=== PATIENT | male | born 1995 | race Caucasian/White ===

== ENCOUNTER 2016-11-27 20:04 | Emergency (ER) | payer BC ==
[2016-11-27 20:30] VITALS: BP 123/76; PULSE 80; RESP 18; TEMP 70
--- NOTE | 2016-11-27 20:38 | ED ---
Skin/Abscess/FB HPI - General Chief complaint: Skin/Abscess/Foreign Body Stated complaint: Rash/Arm Time Seen by Provider: 11/27/16 20:31 Source: patient, RN notes reviewed Mode of arrival: ambulatory Limitations: no limitations - History of Present Illness Initial comments: 21-year-old male presents for insect bites to right forearm. Patient states that he woke up with them they have been itching. Patient states he went to work and they sent him home because they wanted to make sure the insect bites were not contagious. Patient states a mildly itchy. Patient states there is been no trauma no fever chills no cough cold runny nose. Patient states he look typical of when he gets insect bites. - Related Data Previous Rx's Medication Instructions Recorded diphenhydrAMINE & Zinc Cream 1 applic TOPICAL BID #1 tube 11/27/16 [Benadryl Cream] Allergies Allergy/AdvReac Type Severity Reaction Status Date / Time Penicillins Allergy Unknown Verified 11/27/16 20:30 Childhood Review of Systems ROS Statement: Those systems with pertinent positive or pertinent negative responses have been documented in the HPI. ROS Other: All systems not noted in ROS Statement are negative. Past Medical History Past Medical History: Asthma History of Any Multi-Drug Resistant Organisms: None Reported Past Surgical History: Adenoidectomy, Ear Surgery, Tonsillectomy Additional Past Surgical History / Comment(s): colon biopsy Past Psychological History: No Psychological Hx Reported Smoking Status: Current every day smoker Past Alcohol Use History: Occasional Past Drug Use History: Marijuana General Exam - General Exam Comments Initial Comments: General: The patient is awake and alert, in no distress, and does not appear acutely ill. Neck: The neck is supple, there is no tenderness. Cardiovascular: There is a regular rate and rhythm. No murmur, rub or gallop is appreciated. Respiratory: Lungs are clear to auscultation, respirations are non-labored, breath sounds are equal. No wheezes, stridor, rales, or rhonchi. Musculoskeletal: Sensation intact with 2+ pulses. Right upper extremity. Fund motion of right elbow and right shoulder and right arm. Patient appears to have multiple insect bites to the right forearm. There is no fluctuance to the area. No drainage no purulent discharge. Neurological: CN II-XII intact, There are no obvious motor or sensory deficits. Coordination appears grossly intact. Speech is normal. Skin: Skin is warm and dry and no rashes or lesions are noted. Psychiatric: Normal mood and affect. Limitations: no limitations Course Vital Signs 11/27/16 20:27 Temperature 70 F L Pulse Rate 80 Respiratory 18 Rate Blood Pressure 123/76 O2 Sat by Pulse 99 Oximetry Medical Decision Making - Medical Decision Making 18-year-old male presents for insect bites to the right forearm. This time patient was given a prescription for Benadryl cream to apply to the area. We discussed return parameters. Follow-up and all patient's questions. He stated he understood he is very plan. He'll be discharged. Disposition Clinical Impression: Insect bite of right arm Disposition: HOME SELF-CARE Condition: Stable Instructions: Insect Bite or Sting (ED) Additional Instructions: Please use medication as discussed. Please follow up with family doctor if symptoms have not improved over the next two days. Please return to the emergency room if your symptoms increase or worsen or for any other concerns. Prescriptions: diphenhydrAMINE & Zinc Cream [Benadryl Cream] 1 applic TOPICAL BID #1 tube Referrals: None,Stated [Primary Care Provider] - 1-2 days Amelia Dsouza MD [STAFF PHYSICIAN] - 1-2 days Time of Disposition: 20:38
== END 2016-11-27 20:52 | disposition home or self-care (01) ==
LOC: EC 20:04
DX: S50.861A Insect bite (nonvenomous) of right forearm, initial encounter (principal); F17.200 Nicotine dependence, unspecified, uncomplicated; Z88.0 Allergy status to penicillin; W57.XXXA Bitten or stung by nonvenomous insect and other nonvenomous arthropods, initial encounter
CPT/HCPCS: 99282

== ENCOUNTER 2017-03-10 21:52 | Emergency (ER) | payer BC, OTHER ==
[2017-03-10 22:24] VITALS: RESP 16
[2017-03-10] MEDS ORDERED: SODIUM CHLORIDE 0.9% 1,000 ML IV STA (23:11)
[2017-03-10 23:46] LABS: ALT 27 U/L (21-72); AST 19 U/L (17-59); Alkaline Phosphatase 57 U/L (38-126); Anion Gap 6 mmol/L; Blood Urea Nitrogen 8 mg/dL (9-20); Calcium 8.4 mg/dL (8.4-10.2); Carbon Dioxide 24 mmol/L (22-30); Chloride 108 mmol/L (98-107); Glucose 91 mg/dL (74-99); Non-African American GFR(MDRD) >60 (>60 ml/min/1.73 sqM); Potassium 3.5 mmol/L (3.5-5.1); Sodium 138 mmol/L (137-145); Total Bilirubin 0.2 mg/dL (0.2-1.3); Total Protein 5.1 g/dL (6.3-8.2)
[2017-03-10 23:47] LABS: Basophils # (A) 0.1 k/uL (0-0.2); Basophils % (A) 1 %; CH 29.4; CHCM 32.5; Eosinophils # (A) 0.3 k/uL (0-0.7); Eosinophils % (A) 3 %; HCT 44.4 % (39.0-53.0); HDW 2.22; HGB 14.6 gm/dL (13.0-17.5); Luc # (Auto) 0.09; Luc % (Auto) 1; Lymphocytes # (A) 1.7 k/uL (1.0-4.8); Lymphocytes % (A) 21 %; MCH 29.9 pg (25.0-35.0); MCHC 32.9 g/dL (31.0-37.0); MCV 90.8 fL (80.0-100.0); Mean Platelet Volume 7.4; Monocytes # (A) 0.4 k/uL (0-1.0); Monocytes % (A) 5 %; Neutrophils # (A) 5.8 k/uL (1.3-7.7); Neutrophils % (A) 69 %; RBC 4.89 m/uL (4.30-5.90); RDW 12.2 % (11.5-15.5); WBC 8.4 k/uL (3.8-10.6); WBC (Perox) 8.03
[2017-03-10 23:48] LABS: Appearance,Urine Clear (Clear); Bilirubin,Urine Negative (Negative); Glucose,Urine (UA) Negative (Negative); Ketones,Urine Negative (Negative); Leukocyte Esterase,Urine Negative (Negative); Nitrite,Urine Negative (Negative); PH, Urine 6.5 (5.0-8.0); Protein,Urine Negative (Negative); UA Billing (MACRO vs. MICRO) CHEM; Urobilinogen,Urine <2.0 mg/dL (<2.0)
[2017-03-11 00:03] LABS: Glucose,Whole Blood 119 mg/dL (75-99)
--- NOTE | 2017-03-11 00:21 | ED ---
Dizziness HPI - General Chief Complaint: Dizziness Stated Complaint: feeling faint; fast heart beat Time Seen by Provider: 03/10/17 22:35 Source: patient Mode of arrival: ambulatory Limitations: no limitations - History of Present Illness Initial Comments: 21-year-old male patient presents to emergency department today for feelings of dizziness. Patient states that the symptoms started around 10:30 this evening. Patient states that at the time he was playing video games, states that he became dizzy and then started to have some nausea associated with this. He states that the dizziness was mostly, when he would sit up or stand up. He states that it felt like the room was spinning. He states that he did smoke marijuana this evening however states he has done this in the past without any similar symptoms. He denies any headache, blurred vision, double vision, weakness, numbness, tingling, abdominal pain, current nausea, vomiting, diarrhea , constipation, blurred vision, or double vision. Denies any difficulty with urination. He denies any cough, congestion, nasal drainage, ear pain, or ear fullness. Denies any history of similar symptoms. She states that at this time symptoms have improved. He denies any use of alcohol. Denies any use of other street drugs. States he does smoke cigarettes. - Related Data Home Medications Medication Instructions Recorded Confirmed No Known Home Medications [No 03/10/17 03/10/17 Known Home Medications] Allergies Allergy/AdvReac Type Severity Reaction Status Date / Time Penicillins Allergy Unknown Verified 03/10/17 22:24 Childhood Review of Systems ROS Statement: Those systems with pertinent positive or pertinent negative responses have been documented in the HPI. ROS Other: All systems not noted in ROS Statement are negative. Past Medical History Past Medical History: Asthma History of Any Multi-Drug Resistant Organisms: None Reported Past Surgical History: Adenoidectomy, Ear Surgery, Tonsillectomy Additional Past Surgical History / Comment(s): colon biopsy Past Psychological History: No Psychological Hx Reported Smoking Status: Current every day smoker Past Alcohol Use History: Occasional Past Drug Use History: Marijuana General Exam Limitations: no limitations General appearance: alert, in no apparent distress, other (This is a well- developed, well-nourished adult male patient in no acute distress. Vital signs upon presentation are temperature 98.6F, pulse 70, respirations 16, blood pressure 121/70, pulse ox 98% on room air.) Eye exam: Present: normal appearance, PERRL, EOMI, conjunctival injection (Mild conjunctival erythema, bilaterally.), other (No drainage). Absent: scleral icterus, nystagmus, periorbital swelling ENT exam: Present: normal exam, normal oropharynx, mucous membranes moist, TM's normal bilaterally, normal external ear exam Neck exam: Present: normal inspection. Absent: tenderness, meningismus, lymphadenopathy Respiratory exam: Present: normal lung sounds bilaterally. Absent: respiratory distress, wheezes, rales, rhonchi, stridor Cardiovascular Exam: Present: regular rate, normal rhythm, normal heart sounds. Absent: systolic murmur, diastolic murmur, rubs, gallop, clicks GI/Abdominal exam: Present: soft, normal bowel sounds. Absent: distended, tenderness, guarding, rebound, rigid Neurological exam: Present: alert, oriented X3, CN II-XII intact, other ( Strength in all extremities is 5/5. Facial features are symmetric at rest and with movement. Speech is fluid and clear.) Psychiatric exam: Present: normal affect, normal mood Skin exam: Present: warm, dry, intact, normal color. Absent: rash Course Vital Signs 03/10/17 03/11/17 22:23 00:36 Temperature 98.6 F 97.9 F Pulse Rate 70 67 Respiratory 16 16 Rate Blood Pressure 121/70 120/78 O2 Sat by Pulse 98 98 Oximetry EKG Findings - EKG Comments: EKG Findings:: EKG obtained at 2234 shows normal sinus rhythm with a ventricular rate of 79, [place] interval 136, Q [facility] 90, QT 366, QTC 419. Medical Decision Making - Medical Decision Making 21-year-old male patient presented for evaluation of dizziness that started around 10:30 this evening. Physical examination was unremarkable. Labs reviewed and were unremarkable. Urine drug screen was positive for marijuana which patient did admit to. Was negative for any other substances. EKG was within normal limits. Patient's vital signs remained stable throughout stay. Patient was reevaluated, states that symptoms have improved. Did discuss with patient use of marijuana did discuss this as a possible cause of his symptoms. He is instructed however to follow-up with his primary care physician for recheck in 1-2 days. He is instructed to return here immediately for any new, worsening, or concerning symptoms. He verbalized understanding and agreed with this plan. - Lab Data Result diagrams: 03/10/17 23:04 03/10/17 23:04 Lab Results 03/10/17 03/10/17 03/10/17 Range/Units 23:04 23:04 23:04 WBC 8.4 (3.8-10.6) k/uL RBC 4.89 (4.30-5.90) m/uL Hgb 14.6 (13.0-17.5) gm/dL Hct 44.4 (39.0-53.0) % MCV 90.8 (80.0-100.0) fL MCH 29.9 (25.0-35.0) pg MCHC 32.9 (31.0-37.0) g/dL RDW 12.2 (11.5-15.5) % Plt Count 163 (150-450) k/uL Neutrophils % 69 % Lymphocytes % 21 % Monocytes % 5 % Eosinophils % 3 % Basophils % 1 % Neutrophils # 5.8 (1.3-7.7) k/uL Lymphocytes # 1.7 (1.0-4.8) k/uL Monocytes # 0.4 (0-1.0) k/uL Eosinophils # 0.3 (0-0.7) k/uL Basophils # 0.1 (0-0.2) k/uL Sodium 138 (137-145) mmol/L Potassium 3.5 (3.5-5.1) mmol/L Chloride 108 H (98-107) mmol/L Carbon Dioxide 24 (22-30) mmol/L Anion Gap 6 mmol/L BUN 8 L (9-20) mg/dL Creatinine 0.70 (0.66-1.25) mg/dL Est GFR (MDRD) Af Amer >60 (>60 ml/min/1.73 sqM) Est GFR (MDRD) Non-Af >60 (>60 ml/min/1.73 sqM) Glucose 91 (74-99) mg/dL POC Glucose (mg/dL) (75-99) mg/dL POC Glu Geophysicist ID Calcium 8.4 (8.4-10.2) mg/dL Total Bilirubin 0.2 (0.2-1.3) mg/dL AST 19 (17-59) U/L ALT 27 (21-72) U/L Alkaline Phosphatase 57 (38-126) U/L Total Protein 5.1 L (6.3-8.2) g/dL Albumin 3.0 L (3.5-5.0) g/dL Urine Color Yellow Urine Appearance Clear (Clear) Urine pH 6.5 (5.0-8.0) Ur Specific [place] 1.010 (1.001-1.035) Urine Protein Negative (Negative) Urine Glucose (UA) Negative (Negative) Urine Ketones Negative (Negative) Urine Blood Negative (Negative) Urine Nitrite Negative (Negative) Urine Bilirubin Negative (Negative) Urine Urobilinogen <2.0 (<2.0) mg/dL Ur Leukocyte Esterase Negative (Negative) Urine Opiates Screen Not Detected (NotDetected) Ur Oxycodone Screen Not Detected (NotDetected) Urine Methadone Screen Not Detected (NotDetected) Ur Propoxyphene Screen Not Detected (NotDetected) Ur Barbiturates Screen Not Detected (NotDetected) U Tricyclic Antidepress Not Detected (NotDetected) Ur Phencyclidine Scrn Not Detected (NotDetected) Ur Amphetamines Screen Not Detected (NotDetected) U Methamphetamines Scrn Not Detected (NotDetected) U Benzodiazepines Scrn Not Detected (NotDetected) Urine Cocaine Screen Not Detected (NotDetected) U Marijuana (THC) Screen Detected H (NotDetected) 03/10/17 Range/Units 23:12 WBC (3.8-10.6) k/uL RBC (4.30-5.90) m/uL Hgb (13.0-17.5) gm/dL Hct (39.0-53.0) % MCV (80.0-100.0) fL MCH (25.0-35.0) pg MCHC (31.0-37.0) g/dL RDW (11.5-15.5) % Plt Count (150-450) k/uL Neutrophils % % Lymphocytes % % Monocytes % % Eosinophils % % Basophils % % Neutrophils # (1.3-7.7) k/uL Lymphocytes # (1.0-4.8) k/uL Monocytes # (0-1.0) k/uL Eosinophils # (0-0.7) k/uL Basophils # (0-0.2) k/uL Sodium (137-145) mmol/L Potassium (3.5-5.1) mmol/L Chloride (98-107) mmol/L Carbon Dioxide (22-30) mmol/L Anion Gap mmol/L BUN (9-20) mg/dL Creatinine (0.66-1.25) mg/dL Est GFR (MDRD) Af Amer (>60 ml/min/1.73 sqM) Est GFR (MDRD) Non-Af (>60 ml/min/1.73 sqM) Glucose (74-99) mg/dL POC Glucose (mg/dL) 119 H (75-99) mg/dL POC Glu Geophysicist ID Vaibhav Muñoz Calcium (8.4-10.2) mg/dL Total Bilirubin (0.2-1.3) mg/dL AST (17-59) U/L ALT (21-72) U/L Alkaline Phosphatase (38-126) U/L Total Protein (6.3-8.2) g/dL Albumin (3.5-5.0) g/dL Urine Color Urine Appearance (Clear) Urine pH (5.0-8.0) Ur Specific [place] (1.001-1.035) Urine Protein (Negative) Urine Glucose (UA) (Negative) Urine Ketones (Negative) Urine Blood (Negative) Urine Nitrite (Negative) Urine Bilirubin (Negative) Urine Urobilinogen (<2.0) mg/dL Ur Leukocyte Esterase (Negative) Urine Opiates Screen (NotDetected) Ur Oxycodone Screen (NotDetected) Urine Methadone Screen (NotDetected) Ur Propoxyphene Screen (NotDetected) Ur Barbiturates Screen (NotDetected) U Tricyclic Antidepress (NotDetected) Ur Phencyclidine Scrn (NotDetected) Ur Amphetamines Screen (NotDetected) U Methamphetamines Scrn (NotDetected) U Benzodiazepines Scrn (NotDetected) Urine Cocaine Screen (NotDetected) U Marijuana (THC) Screen (NotDetected) Disposition Clinical Impression: Dizziness Disposition: HOME SELF-CARE Condition: Good Instructions: Dizziness (ED) Additional Instructions: Increase fluids. Follow-up with her primary care physician for recheck in 1-2 days. Return here immediately for any new, worsening, or concerning symptoms. Referrals: None,Stated [Primary Care Provider] - 1-2 days Time of Disposition: 00:21
[2017-03-11 00:39] VITALS: BP 120/78; PULSE 67; TEMP 97.9
== END 2017-03-11 00:39 | disposition home or self-care (01) ==
LOC: EC 21:52
DX: R42 Dizziness and giddiness (principal); F17.200 Nicotine dependence, unspecified, uncomplicated; Z88.0 Allergy status to penicillin
CPT/HCPCS: 36415; 80053; 80306; 81003; 85025; 93005; 96360; 99284

== ENCOUNTER 2019-04-03 19:43 | Emergency (ER) | payer OTHER ==
[2019-04-03 19:47] VITALS: RESP 18
--- NOTE | 2019-04-03 20:27 | XR ---
EXAMINATION TYPE: XR forearm LT DATE OF EXAM: 04/03/2019 COMPARISON: NONE HISTORY: Wrist pain. Fall. TECHNIQUE: 2 view FINDINGS: There is nondisplaced transverse fracture of the distal radial metaphysis. This is 1 cm fro m the epiphyseal plate. Carpal bones are intact. Elbow joint appears intact. IMPRESSION: Acute nondisplaced transverse fracture distal radius.
--- NOTE | 2019-04-03 20:34 | XR ---
EXAMINATION TYPE: XR wrist complete LT DATE OF EXAM: 04/03/2019 COMPARISON: NONE HISTORY: Wrist pain TECHNIQUE: 4 views FINDINGS: There is acute comminuted transverse fracture of the distal radial metaphysis. Fracture diane e extends to the wrist joint. There is possible hairline fracture of the ulnar styloid process. The c arpal bones are intact. IMPRESSION: Acute comminuted fracture distal radius. Possible ulnar styloid process fracture.
[2019-04-03] MEDS ORDERED: KETOROLAC 60 MG/2 ML VIAL IM STA (21:09)
--- NOTE | 2019-04-03 21:31 | ED ---
General Adult HPI - General Chief complaint: Extremity Injury, Upper Stated complaint: Arm injury Source: patient, RN notes reviewed, old records reviewed Mode of arrival: ambulatory Limitations: no limitations - History of Present Illness Initial comments: 23-year-old male patient presents to the chief complaint of left wrist pain distal radius. Patient port that he was walking, slipped, fell down towards his buttock region had a fall on outstretched arm. Denies any trauma to head or neck. Denies any other complaints. Systemic: Pt denies fatigue, fever/chills, rash. Pt denies weakness, night sweats, weight loss. Neuro: Pt denies headache, visual disturbances, syncope or pre-syncope. HEENT: Pt denies ocular discharge or irritation, otalgia, rhinorrhea, pharyngitis or notable lymphadenopathy. Cardiopulmonary: Pt denies chest pain, SOB, heart palpitations, dyspnea on exertion. Abdominal/GI: Pt denies abdominal pain, n/v/d. : Pt denies dysuria, burning w/ urination, frequency/urgency. Denies new onset urinary or bowel incontinence. MSK: Pt denies myalgia, loss of strength or function in extremities. Neuro: Pt denies new onset weakness, paresthesias. - Related Data Home Medications Medication Instructions Recorded Confirmed No Known Home Medications 03/10/17 03/10/17 Allergies Allergy/AdvReac Type Severity Reaction Status Date / Time Penicillins Allergy Unknown Verified 04/03/19 19:47 Childhood Review of Systems ROS Statement: Those systems with pertinent positive or pertinent negative responses have been documented in the HPI. ROS Other: All systems not noted in ROS Statement are negative. Past Medical History Past Medical History: Asthma History of Any Multi-Drug Resistant Organisms: None Reported Past Surgical History: Adenoidectomy, Ear Surgery, Tonsillectomy Additional Past Surgical History / Comment(s): colon biopsy, Past Psychological History: No Psychological Hx Reported Smoking Status: Former smoker Past Alcohol Use History: Occasional Past Drug Use History: Marijuana General Exam - General Exam Comments Initial Comments: Constitutional: NAD, AOX3, Pt has pleasant affect. HEENT: NC/AT, trachea midline, neck supple, no lymphadenopathy. Posterior pharynx non erythematous, without exudates. External ears appear normal, without discharge. Mucous membranes moist. Eyes PERRLA, EOM intact. There is no scleral icterus. No pallor noted. Cardiopulmonary: RRR, no murmurs, rubs or gallops, no JVD noted. Lungs CTAB in anterior and posterior romeo. No peripheral edema. Abdominal exam: Abdomen soft and non-distended. Abdomen non-tender to palpation in all 4 quadrants. Bowel sounds active in LLQ. No hepatosplenomegaly. No ecchymosis Neuro: CN II-XII grossly intact. No nuchal rigidity. No raccon eyes, no preston sign, no hemotympanum. No cervical spinal tenderness. MSK: Left distal radius tender to palpation. No skin changes. Neurovascularly intact. Neurovascularly intact after splint placed. Neurovascularly intact after splint placement. No posterior calf tenderness bilaterally, homans sign negative bilaterally. Posterior tibialis and radial pulse +2 bilaterally. Sensation intact in upper and lower extremities. Full active ROM in upper and lower extremities, 5/5 stregnth. Limitations: no limitations Course Vital Signs 04/03/19 19:44 Temperature 97.3 F L Pulse Rate 84 Respiratory 18 Rate Blood Pressure 134/88 O2 Sat by Pulse 98 Oximetry Medical Decision Making - Medical Decision Making 23-year-old male patient presents to the chief complaint of left wrist pain distal radius. Patient port that he was walking, slipped, fell down towards his buttock region had a fall on outstretched arm. Denies any trauma to head or neck. Denies any other complaints. Pt VSS, afebrile. Physical exam displayed: Left distal radius tender to palpation. No skin changes. Neurovascularly intact. Neurovascularly intact after splint placed. Neurovascularly intact after splint placement. Plain film of wrist and forearm displayed acute comminuted fracture distal radius, possible ulnar styloid process fracture. Patient placed in splint. Will discharge with outpatient orthopedic follow-up. Case discussed with Dr. Mae. Disposition Clinical Impression: Distal radius fracture Disposition: HOME SELF-CARE Condition: Stable Instructions (If sedation given, give patient instructions): Arm Fracture in Adults (ED) Additional Instructions: Continue to wear splint. Follow up with orthopedic consult tomorrow. Return to ER if condition worsens. Follow up with PCP in 1-2 days. Is patient prescribed a controlled substance at d/c from ED?: No Referrals: None,Stated [Primary Care Provider] - 1-2 days Petrocelli,Shoaib A, DO [Medical Doctor] - 1-2 days
[2019-04-03] MEDS ORDERED: IBUPROFEN 600 MG STARTER PACK 4 TAB BTL PO STA (21:33)
[2019-04-03 21:45] VITALS: BP 115/74; PULSE 75; TEMP 98
== END 2019-04-03 21:44 | disposition home or self-care (01) ==
LOC: EC 19:43
DX: S52.502A Unspecified fracture of the lower end of left radius, initial encounter for closed fracture (principal); Z87.891 Personal history of nicotine dependence; Z88.0 Allergy status to penicillin; Z53.29 Procedure and treatment not carried out because of patient's decision for other reasons; W01.0XXA Fall on same level from slipping, tripping and stumbling without subsequent striking against object, initial encounter; Y93.01 Activity, walking, marching and hiking
CPT/HCPCS: 29125; 99284

== ENCOUNTER 2019-04-09 13:54 | Emergency (ER) | payer OTHER ==
[2019-04-09 14:06] VITALS: BP 108/74; PULSE 75; RESP 16; TEMP 98.1
--- NOTE | 2019-04-09 14:34 | ED ---
Upper Extremity HPI - General Chief Complaint: Extremity Injury, Upper Stated Complaint: Fingers tingling from a fx wrist Time Seen by Provider: 04/09/19 14:07 Source: patient Mode of arrival: ambulatory Limitations: no limitations - History of Present Illness Initial Comments: 23-year-old male presents to the emergency department for a chief complaint of tingling to the left first 3 digits. Patient states that about a week ago he fell down the stairs and broke his wrist. States he was splinted here in the emergency department. He states he tried to follow up with orthopedics but was unable to because he cannot afford the $150 initial fee as he does not have insurance. He is trying to get insurance but it may take up to 45 days. States that today he returned because he is having tingling in the left first 3 digits. States she does have sensation if he touches these but they feel very tingly.Patient has no other complaints at this time including shortness of breath, chest pain, abdominal pain, nausea or vomiting, headache, or visual changes. - Related Data Home Medications Medication Instructions Recorded Confirmed No Known Home Medications 03/10/17 03/10/17 Allergies Allergy/AdvReac Type Severity Reaction Status Date / Time Penicillins Allergy Unknown Verified 04/09/19 14:06 Childhood Review of Systems ROS Statement: Those systems with pertinent positive or pertinent negative responses have been documented in the HPI. ROS Other: All systems not noted in ROS Statement are negative. Past Medical History Past Medical History: Asthma History of Any Multi-Drug Resistant Organisms: None Reported Past Surgical History: Adenoidectomy, Ear Surgery, Tonsillectomy Additional Past Surgical History / Comment(s): colon biopsy, Past Psychological History: No Psychological Hx Reported Smoking Status: Former smoker Past Alcohol Use History: Occasional Past Drug Use History: Marijuana General Exam - General Exam Comments Initial Comments: Patient did have a thumb spica splint in place. There was some flexion noted to the splint. This is likely causing median nerve compression given distribution of paresthesia. Splint was removed. Patient has full sensation in all digits of the left hand. Radial pulses 2+. Capillary refill is less than 2 seconds. Skin is intact. No significant swelling noted. Limitations: no limitations General appearance: alert, in no apparent distress Head exam: Present: atraumatic, normocephalic, normal inspection Eye exam: Present: normal appearance, PERRL, EOMI. Absent: scleral icterus, conjunctival injection, periorbital swelling ENT exam: Present: normal exam, mucous membranes moist Neck exam: Present: normal inspection. Absent: tenderness, meningismus, lymphadenopathy Respiratory exam: Present: normal lung sounds bilaterally. Absent: respiratory distress, wheezes, rales, rhonchi, stridor Cardiovascular Exam: Present: regular rate, normal rhythm, normal heart sounds. Absent: systolic murmur, diastolic murmur, rubs, gallop, clicks Course Vital Signs 04/09/19 14:04 Temperature 98.1 F Pulse Rate 75 Respiratory 16 Rate Blood Pressure 108/74 O2 Sat by Pulse 100 Oximetry Procedures - Orthopedic Splinting/Casting Injury #1 Side: left Upper Extremity Immobilizer: volar splint Additional Comments: Neurovascular status intact Medical Decision Making - Medical Decision Making Patient presents after one week of comminuted distal radius fracture. Patient was splinted in thumb spica here in the emergency department but was noted to have minimal flexion to the splint. This is likely causing some mild compression of the median nerve as patient does have paresthesias in this distribution. Splint was removed. He was resplinted in a volar wrist splint with about 10 degrees extension. Patient had significant improvement in symptoms. I did speak with Lali from about this insurance issue. She recommends patient call the billing department to try to make payment plan as she does recommend he follows up with Dr. Rivera as soon as possible. Disposition Clinical Impression: Distal radius fracture Disposition: HOME SELF-CARE Condition: Good Instructions (If sedation given, give patient instructions): Wrist Fracture in Adults (ED) Additional Instructions: [facility] and speak to billing department about possible payment plan so you can follow-up with Dr. Rivera as soon as possible. Continue to take anti-inflammatories for pain. Rest ice and elevate the left wrist. Return to the emergency department if you have any worsening symptoms. Is patient prescribed a controlled substance at d/c from ED?: No Referrals: Shoaib Rivera DO [Medical Doctor] - 1-2 days Time of Disposition: 14:41
== END 2019-04-09 14:50 | disposition home or self-care (01) ==
LOC: EC 13:54
DX: S52.502A Unspecified fracture of the lower end of left radius, initial encounter for closed fracture (principal); Z87.891 Personal history of nicotine dependence; Z88.0 Allergy status to penicillin; W10.9XXA Fall (on) (from) unspecified stairs and steps, initial encounter
CPT/HCPCS: 29125; 99283

== ENCOUNTER 2019-11-02 10:57 | Emergency (ER) | payer OTHER ==
[2019-11-02 11:03] VITALS: BP 131/83; PULSE 64; RESP 16; TEMP 97.9
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
== END 2019-11-02 12:36 | disposition home or self-care (01) ==
LOC: EC 10:57
DX: S13.4XXA Sprain of ligaments of cervical spine, initial encounter (principal); Z88.0 Allergy status to penicillin; Z87.891 Personal history of nicotine dependence; Z90.89 Acquired absence of other organs; V43.52XA Car driver injured in collision with other type car in traffic accident, initial encounter; Y93.89 Activity, other specified; Y92.410 Unspecified street and highway as the place of occurrence of the external cause
CPT/HCPCS: 70450; 72125; 99284

== ENCOUNTER 2020-06-09 15:26 | Emergency (ER) | payer OTHER ==
[2020-06-09 15:43] VITALS: BP 130/98; PULSE 78; RESP 18; TEMP 97.9
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
[2020-06-09] MEDS ORDERED: IBUPROFEN 600 MG TAB PO STA (16:25)
--- NOTE | 2020-06-09 16:43 | XR ---
EXAMINATION TYPE: XR wrist complete LT DATE OF EXAM: 06/09/2020 COMPARISON: 04/03/2019 HISTORY: Wrist pain. Injury. TECHNIQUE: FINDINGS: 3 views show no fracture nor dislocation. Joint spaces are normal. There are no pathologic calcifications. There is mild deformity of the distal radius related to old healed fracture. IMPRESSION: No acute abnormality of the left wrist.
== END 2020-06-09 17:03 | disposition home or self-care (01) ==
LOC: EC 15:26
DX: S63.502A Unspecified sprain of left wrist, initial encounter (principal); F17.200 Nicotine dependence, unspecified, uncomplicated; Z88.0 Allergy status to penicillin; X58.XXXA Exposure to other specified factors, initial encounter
CPT/HCPCS: 99283

== ENCOUNTER 2022-03-18 23:36 | Emergency (ER) | payer OTHER ==
[2022-03-19] MEDS ORDERED: HYDROcodone/APAP 5-325MG 1 EACH TAB PO STA (00:29)
[2022-03-19] MEDS ORDERED: ONDANSETRON ODT 4 MG TAB PO STA (00:35)
--- NOTE | 2022-03-19 00:43 | ED ---
General Adult HPI - General Chief complaint: Back Pain/Injury Stated complaint: Fall, Tail Bone Injury Time Seen by Provider: 03/18/22 23:57 Source: patient, RN notes reviewed Mode of arrival: ambulatory Limitations: no limitations - History of Present Illness Initial comments: 26-year-old male presents to the emergency Department with complaints of low back pain. Patient states he experienced a fall 2 days ago in which his right leg gave out and he fell from standing position causing injury. Pain is worsened with position change and being seated. He is able to ambulate with minimal difficulty. Has not taken anything to treat his symptoms prior to arrival. Denies any loss of bowel or bladder control, saddle anesthesia, or foot drop. - Related Data Previous Rx's Medication Instructions Recorded Ibuprofen [Motrin] 600 mg PO Q8HR PRN #20 tab 03/19/22 Allergies Allergy/AdvReac Type Severity Reaction Status Date / Time Penicillins Allergy Unknown Verified 03/18/22 23:41 Childhood Review of Systems ROS Statement: Those systems with pertinent positive or pertinent negative responses have been documented in the HPI. ROS Other: All systems not noted in ROS Statement are negative. Past Medical History Past Medical History: Asthma History of Any Multi-Drug Resistant Organisms: None Reported Past Surgical History: Adenoidectomy, Ear Surgery, Tonsillectomy Additional Past Surgical History / Comment(s): colon biopsy, Past Psychological History: No Psychological Hx Reported Smoking Status: Current some day smoker Past Alcohol Use History: Rare Past Drug Use History: Marijuana General Exam Limitations: no limitations (Well-developed, well-nourished male in no acute distress, though does appear uncomfortable. Initial temperature 98.7, pulse 120, respirations 20, blood pressure 131/82, pulse ox 97% on room air.) General appearance: alert, in no apparent distress Respiratory exam: Present: normal lung sounds bilaterally. Absent: respiratory distress, wheezes, rales, rhonchi, stridor Cardiovascular Exam: Present: regular rate, normal rhythm, normal heart sounds. Absent: systolic murmur, diastolic murmur, rubs, gallop, clicks Extremities exam: Present: normal inspection, full ROM, normal capillary refill. Absent: tenderness, pedal edema, joint swelling, calf tenderness Back exam: Present: vertebral tenderness (Vertebral tenderness upon palpation of the lower lumbar spine/sacral area), other (Small contusion left lumbar region; nontender). Absent: paraspinal tenderness Expanded Back exam: Negative Straight Leg Raising: Left, Right Neurological exam: Present: alert, oriented X3, CN II-XII intact, normal gait Psychiatric exam: Present: flat affect Course Vital Signs 03/18/22 03/19/22 23:37 01:53 Temperature 98.7 F 98.2 F Pulse Rate 120 H 92 Respiratory 20 18 Rate Blood Pressure 131/82 120/90 O2 Sat by Pulse 97 99 Oximetry Medical Decision Making - Medical Decision Making This is a 26-year-old male with no significant past medical history who presents to the emergency department for evaluation of back pain status post fall from standing. Upon exam, patient is nontoxic in appearance though is moderately uncomfortable. Physical exam findings are unremarkable with the exception of sacral tenderness upon palpation and when seated. There are no red flag indicators. No acute findings on imaging. Patient is given [place] with improvement. He will be discharged home to follow up with his PCP as needed. Prescribed Motrin for discomfort. Return parameters discussed in detail. Patient verbalizes understanding and agrees with this plan. Attending: Tu. - Radiology Data Radiology results: report reviewed, image reviewed X-ray of the sacrum and coccyx was obtained. Report was reviewed in its entirety. Impression per Dr. Ho is normal exam. No fracture. No adverse change. X-ray of the lumbar spine was obtained. Report was reviewed in its entirety. Impression per Dr. Ho is normal lumbar spine exam. Disposition Clinical Impression: Low back pain Disposition: HOME SELF-CARE Condition: Stable Instructions (If sedation given, give patient instructions): Acute Low Back Pain (ED) Additional Instructions: Rest as needed. Maintain mobility with frequent ambulation. Take Motrin if needed for pain. Follow-up with your PCP for a recheck as needed. Return to the emergency department with any new, worsening, or concerning symptoms. Prescriptions: Ibuprofen [Motrin] 600 mg PO Q8HR PRN #20 tab PRN Reason: Pain Is patient prescribed a controlled substance at d/c from ED?: No Referrals: None,Stated [Primary Care Provider] - 1-2 days Time of Disposition: 01:37
--- NOTE | 2022-03-19 01:12 | XR ---
EXAMINATION TYPE: XR lumbar spine 2 or 3V DATE OF EXAM: 03/19/2022 COMPARISON: NONE HISTORY: Low back pain TECHNIQUE: 3 views FINDINGS: Lumbar vertebra have normal spacing and alignment. Posterior elements are intact. Sacroilia c joints are intact. IMPRESSION: Normal lumbar spine exam.
--- NOTE | 2022-03-19 01:13 | XR ---
EXAMINATION TYPE: XR sacrum coccyx DATE OF EXAM: 03/19/2022 COMPARISON: 09/30/2013 HISTORY: Pain TECHNIQUE: 3 views FINDINGS: The segments have normal alignment. Sacroiliac joints are intact. No fracture seen. IMPRESSION: Normal exam. No fracture. No adverse change.
[2022-03-19 01:55] VITALS: BP 120/90; PULSE 92; RESP 18; TEMP 98.2
== END 2022-03-19 01:55 | disposition home or self-care (01) ==
LOC: EC 23:36
DX: M54.50 Low back pain, unspecified (principal); J45.909 Unspecified asthma, uncomplicated; F17.200 Nicotine dependence, unspecified, uncomplicated; F12.90 Cannabis use, unspecified, uncomplicated; Z88.0 Allergy status to penicillin
CPT/HCPCS: 72100; 72220; 99283

== ENCOUNTER 2022-11-11 00:58 | Emergency (ER) | payer OTHER ==
[2022-11-11 01:13] VITALS: BP 125/86; PULSE 73; RESP 18; TEMP 98.7
[2022-11-11] MEDS ORDERED: IBUPROFEN 800 MG TAB PO STA (01:23)
--- NOTE | 2022-11-11 01:25 | ED ---
General Adult HPI - General Chief complaint: ENT Stated complaint: Sinus Infection Time Seen by Provider: 11/11/22 01:14 Source: patient Mode of arrival: ambulatory Limitations: no limitations - History of Present Illness Initial comments: This is a 27-year-old male with no past medical history presents emergency department for left ear pain and throat discomfort. The patient stated that he has had baseline pain is left ear over 6 months however over the last 4 days has had increasing pain over the left ear and unable to sleep secondary to this pain. The patient stated that he denied any fevers or chills however but stated that the pain was worse than his of her felt. The patient denied any other acute pain or complaints at this time however. - Related Data Previous Rx's Medication Instructions Recorded Ibuprofen [Motrin] 600 mg PO Q8HR PRN #20 tab 03/19/22 Azithromycin [Zithromax Z Pack] 1 tab PO DIRECTED #6 tab 11/11/22 Allergies Allergy/AdvReac Type Severity Reaction Status Date / Time Penicillins Allergy Unknown Verified 11/11/22 01:13 Childhood Review of Systems ROS Statement: Those systems with pertinent positive or pertinent negative responses have been documented in the HPI. ROS Other: All systems not noted in ROS Statement are negative. Past Medical History Past Medical History: Asthma History of Any Multi-Drug Resistant Organisms: None Reported Past Surgical History: Adenoidectomy, Ear Surgery, Tonsillectomy Additional Past Surgical History / Comment(s): colon biopsy, Past Psychological History: No Psychological Hx Reported Smoking Status: Current some day smoker Past Alcohol Use History: Rare Past Drug Use History: Marijuana General Exam Limitations: no limitations General appearance: alert, in no apparent distress Head exam: Present: atraumatic, normocephalic, normal inspection Eye exam: Present: normal appearance, PERRL Pupils: Present: normal accommodation ENT exam: Present: other (Left TM erythematous and bulging, right TM minor bulging without any erythema noted.). Absent: TM's normal bilaterally Neck exam: Present: normal inspection, full ROM Respiratory exam: Present: normal lung sounds bilaterally Cardiovascular Exam: Present: regular rate, normal rhythm, normal heart sounds GI/Abdominal exam: Present: soft, normal bowel sounds Extremities exam: Present: normal inspection, full ROM Back exam: Present: normal inspection, full ROM Neurological exam: Present: alert, oriented X3, CN II-XII intact Psychiatric exam: Present: normal affect, normal mood Skin exam: Present: warm, dry Course Vital Signs 11/11/22 01:11 Temperature 98.7 F Pulse Rate 73 Respiratory 18 Rate Blood Pressure 125/86 O2 Sat by Pulse 96 Oximetry Medical Decision Making - Medical Decision Making Was pt. sent in by a medical professional or institution (AMY Grey, MEDICAL RECORDS ADMINISTRATOR, urgent care, hospital, or fci...) When possible be specific @ -No Did you speak to anyone other than the patient for history (EMS, parent, family, police, friend...)? What history was obtained from this source @ -No Did you review nursing and triage notes (agree or disagree)? Why? @ -I reviewed and agree with nursing and triage notes Were old charts reviewed (outside hosp., previous admission, EMS record, old EKG, old radiological studies, urgent care reports/EKG's, fci records)? Report findings @ -No old charts were reviewed Differential Diagnosis (chest pain, altered mental status, abdominal pain women, abdominal pain men, vaginal bleeding, weakness, fever, dyspnea, syncope, headache, dizziness, GI bleed, back pain, seizure, CVA, palpatations, mental health)? @ -Otitis media, pharyngitis, URI EKG interpreted by me (3pts min.). @ -None X-rays interpreted by me (1pt min.). @ -None done CT interpreted by me (1pt min.). @ -None done U/S interpreted by me (1pt. min.). @ -None done What testing was considered but not performed or refused? (CT, X-rays, U/S, labs)? Why? @ -Strep testing was considered however as the patient oskar was diagnosed with otitis media and will be placed on antibiotics. Testing for strep was not needed at this time as the and about a "cover both strep and the otitis media. What meds were considered but not given or refused? Why? @ -None Did you discuss the management of the patient with other professionals (professionals i.e. AMY Grey, MEDICAL RECORDS ADMINISTRATOR, lab, RT, psych nurse, social security benefits interviewer, cotton washer, teacher, special technical operations officer, home health care case manager)? Give summary @ -No Was smoking cessation discussed for >3mins.? @ -No Was critical care preformed (if so, how long)? @ -No Were there social determinants of health that impacted care today? How? (Homelessness, low income, unemployed, alcoholism, drug addiction, transportation, low edu. Level, literacy, decrease access to med. care, assisted, rehab)? @ -No Was there de-escalation of care discussed even if they declined (Discuss DNR or withdrawal of care, Hospice)? DNR status @ -No What co-morbidities impacted this encounter? (DM, HTN, Smoking, COPD, CAD, Cancer, CVA, ARF, Chemo, Hep., AIDS, mental health diagnosis, sleep apnea, morbid obesity)? @ -None Was patient admitted / discharged? Hospital course, mention meds given and route, prescriptions, significant lab abnormalities, going to OR and other pertinent info. @ -The patient was seen and evaluated emergency department. Physical exam, the patient was resting in bed without any acute distress. Vital signs admission were stable. Physical exam did demonstrate likely left otitis media and the patient will be given a prescription for azithromycin as he is ALLERGIC to penicillins. The patient was given a dose of Motrin for pain in the emergency department. The patient was advised to continue to monitor his symptoms and to report back if they became acutely worse. The patient was agreeable to this and all his questions were answered. The patient was discharged home in stable condition. Undiagnosed new problem with uncertain prognosis? @ -No Drug Therapy requiring intensive monitoring for toxicity (Heparin, Nitro, Insulin, Cardizem)? @ -No Were any procedures done? @ -No Diagnosis/symptom? @ -Left otitis media Acute, or Chronic, or Acute on Chronic? @ -Acute Uncomplicated (without systemic symptoms) or Complicated (systemic symptoms)? @ -Uncomplicated Side effects of treatment? @ -No Exacerbation, Progression, or Severe Exacerbation? @ -No Poses a threat to life or bodily function? How? (Chest pain, [place], [place], pneumonia, PE, COPD, DKA, ARF, appy, cholecystitis, CVA, Diverticulitis, Homicidal, Suicidal, threat to staff... and all critical care pts) @ -No Disposition Clinical Impression: Otitis media Disposition: HOME SELF-CARE Condition: Stable Instructions (If sedation given, give patient instructions): Ear Infection (ED) Prescriptions: Azithromycin [Zithromax Z Pack] 1 tab PO DIRECTED #6 tab Is patient prescribed a controlled substance at d/c from ED?: No Referrals: None,Stated [Primary Care Provider] - 1-2 days Time of Disposition: 01:20
== END 2022-11-11 01:55 | disposition home or self-care (01) ==
LOC: EC 00:58
DX: H66.92 Otitis media, unspecified, left ear (principal); J45.909 Unspecified asthma, uncomplicated; F12.90 Cannabis use, unspecified, uncomplicated; F17.200 Nicotine dependence, unspecified, uncomplicated; Z88.0 Allergy status to penicillin
CPT/HCPCS: 99283

== ENCOUNTER 2023-01-22 21:56 | Emergency (ER) | payer OTHER ==
[2023-01-22 22:00] VITALS: BP 165/127; PULSE 87; RESP 18; TEMP 98.3
[2023-01-22] MEDS ORDERED: KETOROLAC 15 MG/ML 1 ML VIAL IM STA (22:25)
[2023-01-22] MEDS ORDERED: ACET/COD 300 MG/30 MG STARTER PACK 6 TAB BTL PO STA (22:26)
--- NOTE | 2023-01-22 22:34 | ED ---
General Adult HPI - General Chief complaint: Dental/Oral Stated complaint: Pain in left side of face Time Seen by Provider: 01/22/23 22:00 Source: patient, RN notes reviewed Mode of arrival: ambulatory Limitations: no limitations - History of Present Illness Initial comments: 27-year-old male presents emergency department chief complaint of dental pain 1 day. He states that he has a broken tooth that has been bothering him for quite some time but today he noticed worsening pain. He reports that this has happened before and felt that the antibiotics helped. He has not seen a dentist. He states that he took an ibuprofen today which did not help. He has not noticed any aggravating or alleviating factors. Denies fever, chills, nausea, vomiting. - Related Data Previous Rx's Medication Instructions Recorded Ibuprofen [Motrin] 600 mg PO Q8HR PRN #20 tab 03/19/22 Azithromycin [Zithromax Z Pack] 1 tab PO DIRECTED #6 tab 11/11/22 Clindamycin [Cleocin] 450 mg PO Q8HR #45 capsule 12/10/22 Clindamycin [Cleocin] 450 mg PO Q8HR #45 capsule 01/22/23 Ibuprofen [Motrin] 800 mg PO Q8HR #30 tab 01/22/23 Allergies Allergy/AdvReac Type Severity Reaction Status Date / Time Penicillins Allergy Unknown Verified 01/22/23 22:00 Childhood Review of Systems ROS Statement: Those systems with pertinent positive or pertinent negative responses have been documented in the HPI. ROS Other: All systems not noted in ROS Statement are negative. Past Medical History Past Medical History: Asthma History of Any Multi-Drug Resistant Organisms: None Reported Past Surgical History: Adenoidectomy, Ear Surgery, Tonsillectomy Additional Past Surgical History / Comment(s): colon biopsy, Past Psychological History: No Psychological Hx Reported Smoking Status: Former smoker Past Alcohol Use History: Rare Past Drug Use History: Marijuana General Exam Limitations: no limitations General appearance: alert, in no apparent distress Head exam: Present: atraumatic, normocephalic, normal inspection Eye exam: Present: normal appearance, PERRL, EOMI. Absent: scleral icterus, conjunctival injection, periorbital swelling ENT exam: Present: mucous membranes moist, TM's normal bilaterally, normal external ear exam, other (fractured tooth in upper left dentition ) Neck exam: Present: normal inspection. Absent: tenderness, meningismus, lymphadenopathy Respiratory exam: Present: normal lung sounds bilaterally. Absent: respiratory distress, wheezes, rales, rhonchi, stridor Cardiovascular Exam: Present: regular rate, normal rhythm, normal heart sounds. Absent: systolic murmur, diastolic murmur, rubs, gallop, clicks Extremities exam: Present: normal inspection, full ROM, normal capillary refill. Absent: tenderness, pedal edema, joint swelling, calf tenderness Back exam: Present: normal inspection Neurological exam: Present: alert, oriented X3 Psychiatric exam: Present: normal affect, normal mood Skin exam: Present: warm, dry, intact, normal color. Absent: rash Course Vital Signs 01/22/23 21:58 Temperature 98.3 F Pulse Rate 87 Respiratory 18 Rate Blood Pressure 165/127 O2 Sat by Pulse 97 Oximetry Medical Decision Making - Medical Decision Making Was pt. sent in by a medical professional or institution (, [place], [employer], urgent care, hospital, or long-term...) When possible be specific @ -No Did you speak to anyone other than the patient for history (EMS, parent, family, police, friend...)? What history was obtained from this source @ -No Did you review nursing and triage notes (agree or disagree)? Why? @ -I reviewed and agree with nursing and triage notes Were old charts reviewed (outside hosp., previous admission, EMS record, old EKG, old radiological studies, urgent care reports/EKG's, long-term records)? Report findings @ -chart from prior visit reviewed Differential Diagnosis (chest pain, altered mental status, abdominal pain women, abdominal pain men, vaginal bleeding, weakness, fever, dyspnea, syncope, headache, dizziness, GI bleed, back pain, seizure, CVA, palpatations, mental health, musculoskeletal)? @ -Dental abscess, dental fracture, dental caries, dental infection, this list is not all inclusive EKG interpreted by me (3pts min.). @ -none X-rays interpreted by me (1pt min.). @ -None done CT interpreted by me (1pt min.). @ -None done U/S interpreted by me (1pt. min.). @ -None done What testing was considered but not performed or refused? (CT, X-rays, U/S, labs)? Why? @ -None What meds were considered but not given or refused? Why? @ -None Did you discuss the management of the patient with other professionals (professionals i.e. DrCricket, PA, SIGHT M[employer]TER, lab, RT, psych nurse, social worker health services, filter worker, teacher, consumer loan officer, hospice case manager)? Give summary @ -No Was smoking cessation discussed for >3mins.? @ -No Was critical care preformed (if so, how long)? @ -No Were there social determinants of health that impacted care today? How? (Homelessness, low income, unemployed, alcoholism, drug addiction, transportation, low edu. Level, literacy, decrease access to med. care, fdc, rehab)? @ -No Was there de-escalation of care discussed even if they declined (Discuss DNR or withdrawal of care, Hospice)? DNR status @ -No What co-morbidities impacted this encounter? (DM, HTN, Smoking, COPD, CAD, Cancer, CVA, ARF, Chemo, Hep., AIDS, mental health diagnosis, sleep apnea, morbid obesity)? @ -None Was patient admitted / discharged? Hospital course, mention meds given and route, prescriptions, significant lab abnormalities, going to OR and other pertinent info. @ -discharged. She will emergency department chief complaint of dental pain 1 day. Patient has taken ibuprofen once today which did not help with the pain. Patient given shot of toradol and tylenol #3 starter pack. Prescription sent to patients pharmacy for clindamycin and ibuprofen. Patient stable at time of discharge. Case discussed with my attending, Dr. Henson Undiagnosed new problem with uncertain prognosis? @ -No Drug Therapy requiring intensive monitoring for toxicity (Heparin, Nitro, Insulin, Cardizem)? @ -No Were any procedures done? @ -No Diagnosis/symptom? @ -dental pain Acute, or Chronic, or Acute on Chronic? @ -acute Uncomplicated (without systemic symptoms) or Complicated (systemic symptoms)? @ -uncomplicated Side effects of treatment? @ -No Exacerbation, Progression, or Severe Exacerbation? @ -No Poses a threat to life or bodily function? How? (Chest pain, [place], [place], pneumonia, PE, COPD, DKA, ARF, appy, cholecystitis, CVA, Diverticulitis, Homicidal, Suicidal, threat to staff... and all critical care pts) @ -No Disposition Clinical Impression: Toothache, Dental caries Disposition: HOME SELF-CARE Condition: Stable Instructions (If sedation given, give patient instructions): Toothache (ED) Additional Instructions: Please take antibiotics to completion. Follow up with a dentist. Return to the emergency department for new or worsening symptoms. Prescriptions: Clindamycin [Cleocin] 450 mg PO Q8HR #45 capsule Ibuprofen [Motrin] 800 mg PO Q8HR #30 tab Is patient prescribed a controlled substance at d/c from ED?: No Referrals: None,Stated [Primary Care Provider] - 1-2 days Time of Disposition: 22:34
== END 2023-01-22 22:47 | disposition home or self-care (01) ==
LOC: EC 21:56
DX: K02.9 Dental caries, unspecified (principal); F12.90 Cannabis use, unspecified, uncomplicated; J45.909 Unspecified asthma, uncomplicated; Z87.891 Personal history of nicotine dependence; Z88.0 Allergy status to penicillin
CPT/HCPCS: 99283; 96372; J1885

== ENCOUNTER 2023-03-14 15:55 | Emergency (ER) | payer OTHER ==
[2023-03-14 16:13] VITALS: RESP 18
[2023-03-14] MEDS ORDERED: DEXAMETHASONE SOD PHOSPHATE 10 MG/ML 1 ML VIAL IM STA (16:17)
[2023-03-14] MEDS ORDERED: IPRATROPIUM-ALBUTEROL 3 ML NEB INHALATION STA (16:17)
--- NOTE | 2023-03-14 16:21 | ED ---
URI HPI - General Chief Complaint: Upper Respiratory Infection Stated Complaint: chest pain/cough Time Seen by Provider: 03/14/23 16:11 Source: patient, RN notes reviewed Mode of arrival: wheelchair Limitations: no limitations - History of Present Illness Initial Comments: This is a 27-year-old male who presents to the emergency department for coughing and congestion. States that he's had problems with coughing and congestion for the last couple of days. Today at work he went to sneeze very hard, and states that this made his chest hurt for 1-2 minutes. Denies any chest pain at this time, however he was sent home from work and advised to be tested for Covid. His friend at bedside states that he has also been wheezing. Patient currently denies any shortness of breath. He does have a history of asthma. States that he felt like he had a fever today, but did not measure his temperature. MD Complaint: fever, cough, nasal congestion - Related Data Previous Rx's Medication Instructions Recorded Ibuprofen [Motrin] 600 mg PO Q8HR PRN #20 tab 03/19/22 Azithromycin [Zithromax Z Pack] 1 tab PO DIRECTED #6 tab 11/11/22 Clindamycin [Cleocin] 450 mg PO Q8HR #45 capsule 12/10/22 Clindamycin [Cleocin] 450 mg PO Q8HR #45 capsule 01/22/23 Ibuprofen [Motrin] 800 mg PO Q8HR #30 tab 01/22/23 Albuterol Sulfate [Albuterol 1 puff PO Q4-6H PRN #8.5 gm 03/14/23 Sulfate Hfa] Promethazine/Dextromethorphan 5 ml PO Q4-6H PRN #473 ml 03/14/23 [Promethazine-Dm Syrup] predniSONE 50 mg PO DAILY 5 Days #5 tab 03/14/23 Allergies Allergy/AdvReac Type Severity Reaction Status Date / Time Penicillins Allergy Unknown Verified 03/14/23 16:09 Childhood Review of Systems ROS Statement: Those systems with pertinent positive or pertinent negative responses have been documented in the HPI. ROS Other: All systems not noted in ROS Statement are negative. Past Medical History Past Medical History: Asthma History of Any Multi-Drug Resistant Organisms: None Reported Past Surgical History: Adenoidectomy, Ear Surgery, Tonsillectomy Additional Past Surgical History / Comment(s): colon biopsy, Past Psychological History: No Psychological Hx Reported Smoking Status: Former smoker Past Alcohol Use History: Rare Past Drug Use History: Marijuana General Exam Limitations: no limitations General appearance: alert, in no apparent distress Head exam: Present: atraumatic, normocephalic, normal inspection Respiratory exam: Present: normal lung sounds bilaterally. Absent: respiratory distress, wheezes, rales, rhonchi, stridor Cardiovascular Exam: Present: regular rate, normal rhythm, normal heart sounds. Absent: systolic murmur, diastolic murmur, rubs, gallop, clicks Neurological exam: Present: alert, oriented X3, CN II-XII intact Psychiatric exam: Present: normal affect, normal mood Skin exam: Present: warm, dry, intact, normal color. Absent: rash Course Vital Signs 03/14/23 03/14/23 03/14/23 16:07 16:19 17:40 Temperature 98.8 F 98.3 F Pulse Rate 90 87 Respiratory 18 18 18 Rate Blood Pressure 129/88 125/78 O2 Sat by Pulse 96 98 Oximetry 03/14/23 03/14/23 03/14/23 17:50 17:59 18:04 Temperature 98.2 F Pulse Rate 88 92 88 Respiratory 18 Rate Blood Pressure 130/81 O2 Sat by Pulse 98 Oximetry Medical Decision Making - Medical Decision Making This is a 27-year-old male who presents to the emergency department for coughing and congestion. Was pt. sent in by a medical professional or institution? @ -No Did you speak to anyone other than the patient for history? @ -No Did you review nursing and triage notes? @ -Yes, and I agree, it is accurate with regards to the patient's symptoms. Were old charts reviewed? @ -No Differential Diagnosis? @ -Differential Cough: Influenza, Covid, RSV, croup, allergic rhinitis, GERD, pneumonia, bronchitis, COPD, viral pharyngitis, streptococcal pharyngitis, this is not meant to be an all-inclusive list. EKG interpreted by me (3pts min.)? @ -Not obtained X-rays interpreted by me (1pt min.)? @ -Chest x-ray obtained, my interpretation identifies no localized consolidations or infiltrates. CT interpreted by me (1pt min.)? @ -Not obtained U/S interpreted by me (1pt. min.)? @ -Not obtained What testing was considered but not performed? (CT, X-rays, U/S, labs)? Why? @ -None What meds were considered but not given? Why? @ -None Did you discuss the management of the patient with other professionals? @ -No Did you reconcile home meds? @ -No Was smoking cessation discussed for >3mins.? @ -No Was critical care preformed (if so, how long)? @ -No Were there social determinants of health that impacted care today? How? (Homel essness, low income, unemployed, alcoholism, drug addiction, transportation, low edu. Level, literacy, decrease access to med. care, long term, rehab)? @ -No Was there de-escalation of care discussed even if they declined? (Discuss DNR or withdrawal of care, Hospice)? @ -No What co-morbidities impacted this encounter? (DM, HTN, Smoking, COPD, CAD, Cancer, CVA, Hep., AIDS, mental health diagnosis, sleep apnea, morbid obesity)? @ -Asthma Was patient admitted / discharged? @ -Discharged. Covid, influenza, and RSV testing were negative. Chest x-ray reveals no acute process. Advised that this is likely related to a viral process or asthma exacerbation. DuoNeb breathing treatment administered in the emergency department. Prescription for an albuterol inhaler, promethazine DM cough syrup, and 5 day course of prednisone provided with dosing instructions reviewed. Patient otherwise discharged home in stable condition. Undiagnosed new problem with uncertain prognosis? @ -None Drug Therapy requiring intensive monitoring for toxicity (Heparin, Nitro, Insulin, Cardizem)? @ -None Were any procedures done? @ -None Diagnosis/symptom? @ -Bronchitis Acute, or Chronic, or Acute on Chronic? @ -Acute Uncomplicated (without systemic symptoms) or Complicated (systemic symptoms)? @ -Uncomplicated Side effects of treatment? @ -None Exacerbation, Progression, or Severe Exacerbation] @ -Not applicable Poses a threat to life or bodily function? @ -No Return precautions reviewed in depth, the patient is instructed to return to the emergency department with any new, worsening, or concerning symptoms. Patient verbalized understanding. This case was discussed in detail with the attending ED physician, Dr. Mae. Presentation, findings, and treatment plan discussed in detail as well. - Lab Data Lab Results 03/14/23 Range/Units 16:25 Influenza Type A (PCR) Not Detected (Not Detectd) Influenza Type B (PCR) Not Detected (Not Detectd) RSV (PCR) Not Detected (Not Detectd) SARS-CoV-2 (PCR) Not Detected (Not Detectd) - Radiology Data Radiology results: report reviewed, image reviewed Disposition Clinical Impression: Bronchitis, Asthma Disposition: HOME SELF-CARE Instructions (If sedation given, give patient instructions): Acute Bronchitis (ED) Additional Instructions: Return to the emergency department with any new, worsening, or concerning symptoms. Take the prednisone daily for 5 days. You can use the inhaler and cough medicine every 4-6 hours as needed. Follow up with your primary care provider in 1-2 days. Prescriptions: Albuterol Sulfate [Albuterol Sulfate Hfa] 1 puff PO Q4-6H PRN #8.5 gm PRN Reason: Shortness Of Breath predniSONE 50 mg PO DAILY 5 Days #5 tab Promethazine/Dextromethorphan [Promethazine-Dm Syrup] 5 ml PO Q4-6H PRN #473 ml PRN Reason: Cough Is patient prescribed a controlled substance at d/c from ED?: No Referrals: None,Stated [Primary Care Provider] - 1-2 days
--- NOTE | 2023-03-14 17:00 | XR ---
EXAMINATION TYPE: XR chest 2V DATE OF EXAM: 03/14/2023 COMPARISON: Prior chest x-ray March 11, 2014 HISTORY: Chest pain. History of asthma. TECHNIQUE: Frontal and lateral views of the chest are obtained. FINDINGS: There is no focal air space opacity, pleural effusion, or pneumothorax seen. The cardiac silhouette size is stable and within normal limits. The osseous structures are intact. IMPRESSION: No acute cardiopulmonary process. No significant change from prior.
[2023-03-14 18:19] VITALS: BP 130/81; PULSE 88; TEMP 98.2
== END 2023-03-14 18:05 | disposition home or self-care (01) ==
LOC: EC 15:55
DX: J45.909 Unspecified asthma, uncomplicated (principal); F12.90 Cannabis use, unspecified, uncomplicated; Z87.891 Personal history of nicotine dependence; Z20.822 Contact with and (suspected) exposure to COVID-19; Z88.0 Allergy status to penicillin
CPT/HCPCS: 94640; 87636; 71046; 99285; 96372; J1100

== ENCOUNTER 2023-10-27 01:37 | Emergency (ER) | payer OTHER ==
[2023-10-27 01:41] VITALS: RESP 16
--- NOTE | 2023-10-27 01:59 | ED ---
ENT HPI - General Chief complaint: Dental/Oral Stated complaint: Tooth Ache Time Seen by Provider: 10/27/23 01:42 Source: patient Mode of arrival: ambulatory Limitations: no limitations - History of Present Illness Initial comments: 28-year-old male presenting with chief complaint of dental pain. States that the pain has been ongoing for few days. He has known dental caries and broken tooth. He admits to some mild swelling. No trismus, difficulty breathing or swallowing, fevers, neck pain. - Related Data Previous Rx's Medication Instructions Recorded Ibuprofen [Motrin] 600 mg PO Q8HR PRN #20 tab 03/19/22 Azithromycin [Zithromax Z Pack] 1 tab PO DIRECTED #6 tab 11/11/22 Clindamycin [Cleocin] 450 mg PO Q8HR #45 capsule 12/10/22 Clindamycin [Cleocin] 450 mg PO Q8HR #45 capsule 01/22/23 Ibuprofen [Motrin] 800 mg PO Q8HR #30 tab 01/22/23 Albuterol Sulfate [Albuterol 1 puff PO Q4-6H PRN #8.5 gm 03/14/23 Sulfate Hfa] Promethazine/Dextromethorphan 5 ml PO Q4-6H PRN #473 ml 03/14/23 [Promethazine-Dm Syrup] predniSONE 50 mg PO DAILY 5 Days #5 tab 03/14/23 Clindamycin [Cleocin] 450 mg PO Q8H #63 cap 10/27/23 Allergies Allergy/AdvReac Type Severity Reaction Status Date / Time Penicillins Allergy Unknown Verified 10/27/23 01:38 Childhood Review of Systems ROS Statement: Those systems with pertinent positive or pertinent negative responses have been documented in the HPI. ROS Other: All systems not noted in ROS Statement are negative. Past Medical History Past Medical History: Asthma History of Any Multi-Drug Resistant Organisms: None Reported Past Surgical History: Adenoidectomy, Ear Surgery, Tonsillectomy Additional Past Surgical History / Comment(s): colon biopsy, Past Psychological History: No Psychological Hx Reported Smoking Status: Former smoker Past Alcohol Use History: None Reported Past Drug Use History: Marijuana General Exam Limitations: no limitations General appearance: alert, in no apparent distress Head exam: Present: atraumatic, normocephalic Eye exam: Present: normal appearance ENT exam: Present: mucous membranes moist Expanded Mouth exam: Present: tongue normal. Absent: drooling, trismus, muffled voice Teeth exam: Present: dental caries, fractured tooth #, dental tenderness # Throat exam: normal inspection Neck exam: Present: normal inspection. Absent: meningismus Respiratory exam: Absent: respiratory distress Cardiovascular Exam: Present: regular rate Neurological exam: Present: alert, oriented X3 Psychiatric exam: Present: normal affect, normal mood Skin exam: Present: normal color Course Vital Signs 10/27/23 10/27/23 01:38 02:40 Temperature 97.5 F L 97.7 F Pulse Rate 86 80 Respiratory 16 16 Rate Blood Pressure 114/78 117/79 O2 Sat by Pulse 97 98 Oximetry Medical Decision Making - Medical Decision Making Was pt. sent in by a medical professional or institution ([facility], LOAN SERVICING REPRESENTATIVE, urgent care, hospital, or detention...) When possible be specific @ -No Did you speak to anyone other than the patient for history (EMS, parent, family, police, friend...)? What history was obtained from this source @ -No Did you review nursing and triage notes (agree or disagree)? Why? @ -I reviewed and agree with nursing and triage notes Were old charts reviewed (outside hosp., previous admission, EMS record, old EKG, old radiological studies, urgent care reports/EKG's, detention records)? Report findings @ -No old charts were reviewed Differential Diagnosis (chest pain, altered mental status, abdominal pain women, abdominal pain men, vaginal bleeding, weakness, fever, dyspnea, syncope, headache, dizziness, GI bleed, back pain, seizure, CVA, palpatations, mental health, musculoskeletal)? @ -Differential includes toothache, dental abscess, [place]'s angina, this is not an all-inclusive list EKG interpreted by me (3pts min.). @ -As above X-rays interpreted by me (1pt min.). @ -None done CT interpreted by me (1pt min.). @ -None done U/S interpreted by me (1pt. min.). @ -None done What testing was considered but not performed or refused? (CT, X-rays, U/S, labs)? Why? @ -None What meds were considered but not given or refused? Why? @ -None Did you discuss the management of the patient with other professionals (professionals i.e. , PA, LOAN SERVICING REPRESENTATIVE, lab, RT, psych nurse, social work professor, strategic planning specialist, teacher, ship's officer, ed case manager)? Give summary @ -No Was smoking cessation discussed for >3mins.? @ -No Was critical care preformed (if so, how long)? @ -No Were there social determinants of health that impacted care today? How? (Homelessness, low income, unemployed, alcoholism, drug addiction, transportation, low edu. Level, literacy, decrease access to med. care, fpc, rehab)? @ -No Was there de-escalation of care discussed even if they declined (Discuss DNR or withdrawal of care, Hospice)? DNR status @ -No What co-morbidities impacted this encounter? (DM, HTN, Smoking, COPD, CAD, Cancer, CVA, ARF, Chemo, Hep., AIDS, mental health diagnosis, sleep apnea, morbid obesity)? @ -None Was patient admitted / discharged? Hospital course, mention meds given and route, prescriptions, significant lab abnormalities, going to OR and other pertinent info. @ -28-year-old male presenting with chief complaint of dental pain. On exam no trismus drooling or voice changes. There is an obvious dental carry and fractured tooth. Mild amount of swelling. Patient provided with pain medication and treated for abscess with clindamycin. Provided with dental clinic follow-up. Discharged home. Follow-up with PCP. Report back to ER with any new or worsening symptoms. Discussed return parameters and answered all questions. Patient conveyed verbal understanding and agreed to the plan. I discussed this case in detail with my attending Dr. Dixon Undiagnosed new problem with uncertain prognosis? @ -No Drug Therapy requiring intensive monitoring for toxicity (Heparin, Nitro, Insulin, Cardizem)? @ -No Were any procedures done? @ -No Diagnosis/symptom? @ -Toothache, dental abscess Acute, or Chronic, or Acute on Chronic? @ -Acute Uncomplicated (without systemic symptoms) or Complicated (systemic symptoms)? @ -Uncomplicated Side effects of treatment? @ -No Exacerbation, Progression, or Severe Exacerbation? @ -No Poses a threat to life or bodily function? How? (Chest pain, [place], [place], pneumonia, PE, COPD, DKA, ARF, appy, cholecystitis, CVA, Diverticulitis, Homicidal, Suicidal, threat to staff... and all critical care pts) @ -No Disposition Clinical Impression: Dental abscess, Toothache, Dental caries Disposition: HOME SELF-CARE Condition: Good Instructions (If sedation given, give patient instructions): Dental Abscess (ED) Additional Instructions: Please follow up with the [facility] dental clinic. [email or web address] [place] [address]. Phone number for new patients or [phone] for existing patients. Prescriptions: Clindamycin [Cleocin] 450 mg PO Q8H #63 cap Is patient prescribed a controlled substance at d/c from ED?: No Referrals: None,Stated [Primary Care Provider] - 1-2 days Time of Disposition: 01:59
[2023-10-27] MEDS: ACETAMINOPHEN TAB 500 MG TAB PO STA (02:33)
[2023-10-27] MEDS: CLINDAMYCIN 150 MG CAP PO STA (02:33)
[2023-10-27] MEDS: KETOROLAC 15 MG/ML 1 ML VIAL IM STA (02:35)
[2023-10-27 02:43] VITALS: BP 117/79; PULSE 80; TEMP 97.7
== END 2023-10-27 02:41 | disposition home or self-care (01) ==
LOC: EC 01:37
DX: K02.9 Dental caries, unspecified (principal); K04.7 Periapical abscess without sinus; F12.90 Cannabis use, unspecified, uncomplicated; Z88.0 Allergy status to penicillin; Z87.891 Personal history of nicotine dependence
CPT/HCPCS: 99283; 96372; J1885

== ENCOUNTER 2024-10-01 22:45 | Emergency (ER) | payer OTHER ==
--- NOTE | 2024-10-01 23:07 | ED ---
General Adult HPI - General Chief complaint: Upper Respiratory Infection Stated complaint: Cough Time Seen by Provider: 10/01/24 23:05 Source: patient, RN notes reviewed Mode of arrival: ambulatory - History of Present Illness Initial comments: 29-year-old male with a past medical history significant of asthma presenting the ER for evaluation of URI symptoms. Patient states yesterday he started to feel ill with a cough and congestion. He has taken pmdj-[id number]-[id number] NyQuil with relief of sinus congestion but states his cough persists. Patient states throughout the day today he felt as if he was wheezing in his lungs which prompted emergency department visit. He did not have any inhalers or nebulizers at home to aid with this. Patient does report a rattling in his chest when he coughs. No chest pain. He denies any fevers, chills, nausea, vomiting, abdominal pain, constipation/diarrhea or urinary complaints. Patient does smoke marijuana. - Related Data Previous Rx's Medication Instructions Recorded Ibuprofen [Motrin] 600 mg PO Q8HR PRN #20 tab 03/19/22 Azithromycin [Zithromax Z Pack] 1 tab PO DIRECTED #6 tab 11/11/22 Clindamycin [Cleocin] 450 mg PO Q8HR #45 capsule 12/10/22 Clindamycin [Cleocin] 450 mg PO Q8HR #45 capsule 01/22/23 Ibuprofen [Motrin] 800 mg PO Q8HR #30 tab 01/22/23 Albuterol Sulfate [Albuterol 1 puff PO Q4-6H PRN #8.5 gm 03/14/23 Sulfate Hfa] Promethazine/Dextromethorphan 5 ml PO Q4-6H PRN #473 ml 03/14/23 [Promethazine-Dm Syrup] predniSONE 50 mg PO DAILY 5 Days #5 tab 03/14/23 Clindamycin [Cleocin] 450 mg PO Q8H #63 cap 10/27/23 Albuterol Inhaler [Ventolin Hfa 1 - 2 puff INHALATION Q6H PRN #1 10/02/24 Inhaler] each predniSONE 50 mg PO DAILY #5 tab 10/02/24 Allergies Allergy/AdvReac Type Severity Reaction Status Date / Time Penicillins Allergy Unknown Verified 10/01/24 22:54 Childhood Review of Systems ROS Statement: Those systems with pertinent positive or pertinent negative responses have been documented in the HPI. ROS Other: All systems not noted in ROS Statement are negative. Past Medical History Past Medical History: Asthma History of Any Multi-Drug Resistant Organisms: None Reported Past Surgical History: Adenoidectomy, Ear Surgery, Tonsillectomy Additional Past Surgical History / Comment(s): colon biopsy, Past Psychological History: No Psychological Hx Reported Smoking Status: Former smoker Past Alcohol Use History: None Reported Past Drug Use History: Marijuana General Exam Limitations: no limitations General appearance: alert, in no apparent distress ENT exam: Present: mucous membranes moist, TM's normal bilaterally, other (Erythematous oropharynx. No tonsillar edema, exudates or uvular deviation.) Neck exam: Present: normal inspection. Absent: tenderness, meningismus, lymphadenopathy Respiratory exam: Present: wheezes (Right midlung expiratory) Cardiovascular Exam: Present: regular rate, normal rhythm, normal heart sounds. Absent: systolic murmur, diastolic murmur, rubs, gallop, clicks GI/Abdominal exam: Present: soft, normal bowel sounds. Absent: distended, tenderness, guarding, rebound, rigid Neurological exam: Present: alert, oriented X3, CN II-XII intact Skin exam: Present: warm, dry, intact, normal color. Absent: rash Course Vital Signs 10/01/24 10/02/24 10/02/24 22:52 00:13 00:16 Temperature 99.7 F H 98.2 F Pulse Rate 93 99 99 Respiratory 18 21 Rate Blood Pressure 122/89 112/73 O2 Sat by Pulse 96 98 Oximetry Medical Decision Making - Medical Decision Making Was pt. sent in by a medical professional or institution (, PA, MINIATURE SET BUILDER, urgent care, hospital, or group home...) When possible be specific @ -No Did you speak to anyone other than the patient for history (EMS, parent, family, police, friend...)? What history was obtained from this source @ -No Did you review nursing and triage notes (agree or disagree)? Why? @ -I reviewed and agree with nursing and triage notes Were old charts reviewed (outside hosp., previous admission, EMS record, old EKG, old radiological studies, urgent care reports/EKG's, group home records)? Report findings @ -No old charts were reviewed Differential Diagnosis (chest pain, altered mental status, abdominal pain women, abdominal pain men, vaginal bleeding, weakness, fever, dyspnea, syncope, headache, dizziness, GI bleed, back pain, seizure, CVA, palpatations, mental health, musculoskeletal)? @ -COVID, RSV, influenza, viral sinusitis, pneumonia, strep pharyngitis, this list is not meant to be all-inclusive EKG interpreted by me (3pts min.). @ -None done X-rays interpreted by me (1pt min.). @ -CXR interpreted by me negative for acute cardiopulmonary process CT interpreted by me (1pt min.). @ -None done U/S interpreted by me (1pt. min.). @ -None done What testing was considered but not performed or refused? (CT, X-rays, U/S, labs)? Why? @ -None What meds were considered but not given or refused? Why? @ -None Did you discuss the management of the patient with other professionals (professionals i.e. , PA, MINIATURE SET BUILDER, lab, RT, psych nurse, social media content specialist, lithopress operator, teacher, forward air controller/air officer, shelter case manager)? Give summary @ -No Was smoking cessation discussed for >3mins.? @ -I discussed smoking cessation for greater than 3 minutes. The risk of smoking were discussed with the patient including but not limited to risks of cancer, stroke, coronary artery disease and COPD. Also discussed with patient were multiple methods of quitting smoking. Lastly we discussed the financial cost of smoking. Was critical care preformed (if so, how long)? @ -No Were there social determinants of health that impacted care today? How? (Homelessness, low income, unemployed, alcoholism, drug addiction, transportation, low edu. Level, literacy, decrease access to med. care, fpc, rehab)? @ -No Was there de-escalation of care discussed even if they declined (Discuss DNR or withdrawal of care, Hospice)? DNR status @ -No What co-morbidities impacted this encounter? (DM, HTN, Smoking, COPD, CAD, Cancer, CVA, ARF, Chemo, Hep., AIDS, mental health diagnosis, sleep apnea, morbid obesity)? @ -Asthma, smoker Was patient admitted / discharged? Hospital course, mention meds given and route, prescriptions, significant lab abnormalities, going to OR and other pertinent info. @ -Discharged. 29-year-old male presenting to the ER for evaluation of cough and congestion. Vitals stable. Patient in no signs of acute distress nontoxic- appearing. Wheezing noted to right lung field for which patient received DuoNeb breathing with resolution of wheezing. Viral swabs negative. Chest x-ray negative. Patient will be provided with prescription of prednisone and albuterol inhaler. I instructed him to take these as prescribed and follow-up closely with PCP for further evaluation. Return parameters discussed. Patient discharged stable condition. Patient verbally expressed understanding agree with care plan. Case discussed with ED attending Dr. Chavez. Undiagnosed new problem with uncertain prognosis? @ -No Drug Therapy requiring intensive monitoring for toxicity (Heparin, Nitro, Insulin, Cardizem)? @ -No Were any procedures done? @ -No Diagnosis/symptom? @ -Viral illness/acute viral sinusitis Acute, or Chronic, or Acute on Chronic? @ -Acute Uncomplicated (without systemic symptoms) or Complicated (systemic symptoms)? @ -Uncomplicated Side effects of treatment? @ -No Exacerbation, Progression, or Severe Exacerbation? @ -No Poses a threat to life or bodily function? How? (Chest pain, [place], [place], pneumonia, PE, COPD, DKA, ARF, appy, cholecystitis, CVA, Diverticulitis, Homicidal, Suicidal, threat to staff... and all critical care pts) @ -Unlikely - Lab Data Lab Results 10/01/24 Range/Units 23:06 Influenza Type A (PCR) Not Detected (Not Detectd) Influenza Type B (PCR) Not Detected (Not Detectd) RSV (PCR) Not Detected (Not Detectd) SARS-CoV-2 (PCR) Not Detected (Not Detectd) - Radiology Data Radiology results: report reviewed, image reviewed Disposition Clinical Impression: Viral infection Disposition: HOME SELF-CARE Condition: Stable Additional Instructions: Follow-up with PCP. Return to the ER for any new or worsening concerns. You may take flie-ehi-cnsywio ibuprofen and Tylenol for symptom control along with prescribed butyryl inhaler. Take prednisone as prescribed. Prescriptions: predniSONE 50 mg PO DAILY #5 tab Albuterol Inhaler [Ventolin Hfa Inhaler] 1 - 2 puff INHALATION Q6H PRN #1 each PRN Reason: Shortness Of Breath Is patient prescribed a controlled substance at d/c from ED?: No Referrals: Fahad Morales MD [Primary Care Provider] - 1-2 days Time of Disposition: 00:13
[2024-10-01] MEDS: ACETAMINOPHEN TAB 500 MG TAB PO STA (23:10)
[2024-10-01 23:49] LABS: Influenza A Not Detected (Not Detectd); Influenza B Not Detected (Not Detectd); RSV Not Detected (Not Detectd)
[2024-10-02 00:14] VITALS: BP 112/73; PULSE 99; RESP 21; TEMP 98.2
[2024-10-02] MEDS: IPRATROPIUM-ALBUTEROL 3 ML NEB INHALATION STA (00:15)
--- NOTE | 2024-10-02 01:31 | XR ---
EXAM: XR Chest, 2 Views CLINICAL HISTORY: ITS.REASON XR Reason: wheezing /cough TECHNIQUE: Frontal and lateral views of the chest. COMPARISON: 03/11/14 FINDINGS: Lungs: Unremarkable. No consolidation. Pleural space: Unremarkable. Mediastinum: Unremarkable. Normal mediastinal contour. Bones/joints: No acute findings. IMPRESSION: No acute findings.
== END 2024-10-02 00:35 | disposition home or self-care (01) ==
LOC: EC 22:45
DX: B34.9 Viral infection, unspecified (principal); J45.909 Unspecified asthma, uncomplicated; Z87.891 Personal history of nicotine dependence; Z88.0 Allergy status to penicillin
CPT/HCPCS: 71046; 87636; 94640; 99283